=== PATIENT | female | born 1940 | race Caucasian/White ===

== ENCOUNTER 2016-12-30 12:13 | Emergency (ER) | payer MEDICARE ==
[~2016-12-30] VITALS: Ht 157.5 cm; Wt 63.6 kg
[~2016-12-30 12:13] MED LIST: ASPI81TA33 PO; GLIP10TA9 PO; HYDR25TA PO; INSLAN SQ; INSNOV SQ; LINA5TAB PO; LISI-618 PO; METF-515 PO; METF10002 PO; NITR.4 SL; SIMV-260 PO; SIMV20TA6 PO
[2016-12-30] MEDS ORDERED: NITR.4 SL (12:25)
[2016-12-30] MEDS ORDERED: CITA10TA68 PO (12:25)
[2016-12-30] MEDS ORDERED: AMLO-511 PO (12:25)
[2016-12-30] MEDS ORDERED: ATOR40TA28 PO (12:25)
[2016-12-30] MEDS ORDERED: NITROGLYCERIN 2% (1 GM=INCH) PACKET TP ONE (12:45)
[2016-12-30] MEDS ORDERED: ASPIRIN 81 MG CHEWABLE TABLET PO ONE (12:45)
[2016-12-30 13:06] LABS: BASOPHILS % (AUTO) 0.3 % (0.0-2.0); EOSINOPHILS % (AUTO) 3.1 % (1.0-6.0); HEMOGLOBIN 14.2 g/dL (12.0-16.0); LYMPHOCYTES # (AUTO) 1.8 K/uL (1.0-4.8); LYMPHOCYTES % (AUTO) 35.3 % (22.0-44.0); MEAN CORPUSCULAR HEMOGLOBIN 29.7 pg (26.0-34.0); MEAN CORPUSCULAR HGB CONC 33.7 G/dL (31.0-37.0); MEAN CORPUSCULAR VOLUME 88 fL (80-100); MONOCYTES # (AUTO) 0.4 K/uL (0.1-1.0); MONOCYTES % (AUTO) 8.3 % (2.0-9.0); NEUTROPHILS # (AUTO) 2.8 K/uL (1.8-7.7); PLATELET COUNT (AUTO) 295 K/uL (150-450); RED BLOOD CELL COUNT(AUTO) 4.78 MIL/uL (4.00-5.20); RED CELL DISTRIBUTION WIDTH 14.3 % (11.5-14.5); WHITE BLOOD COUNT (AUTO) 5.2 K/uL (4.5-11.0)
[2016-12-30 13:15] LABS: ANION GAP 7 mmol/L (8-16); CALCIUM, TOTAL 8.6 mg/dL (8.8-10.5); CARBON DIOXIDE 32 mmol/L (22-29); CHLORIDE 101 mmol/L (98-107); CREATININE 0.86 mg/dL (0.60-1.30); GLOMERULAR FILTR. RATE CALC > 60 mL/min (>60); POTASSIUM 3.9 mmol/L (3.5-5.1); SODIUM SERUM 140 mmol/L (136-145); UREA NITROGEN, BLOOD 12 mg/dL (7-18)
[2016-12-30 13:22] LABS: ALANINE AMINOTRANSFERASE 20 U/L (12-78); ALBUMIN 3.5 g/dL (3.4-5.0); ASPARTATE AMINOTRANSFERASE 15 U/L (15-37); BILIRUBIN,TOTAL 0.4 mg/dL (0.1-1.0); CREATINE KINASE, TOTAL 74 U/L (26-192); TOTAL PROTEIN, SERUM 7.1 g/dL (6.4-8.2)
[2016-12-30 13:26] LABS: B-TYPE NATRIURETIC PEPTIDE 113 pg/mL (0-100)
[2016-12-30 15:30] VITALS: BP 127/70
[2016-12-30 16:19] LABS: GLUCOSE,POINT OF CARE 316 MG/DL (70-110)
== END 2016-12-30 15:56 | disposition short-term general hospital (02) ==
LOC: EMS 12:15
DX: R07.89 Other chest pain (principal); E11.9 Type 2 diabetes mellitus without complications; I10 Essential (primary) hypertension; E78.00 Pure hypercholesterolemia, unspecified; Z79.4 Long term (current) use of insulin
CPT/HCPCS: 82962; 93005; 99285

== ENCOUNTER 2018-04-11 11:54 | Emergency (ER) | payer MEDICARE ==
[~2018-04-11] VITALS: Ht 154.9 cm; Wt 70.5 kg
[~2018-04-11 11:54] MED LIST changes: +AMLO-511 PO; -ASPI81TA33 PO; +ATOR40TA28 PO; +CITA10TA68 PO; -LINA5TAB PO; +METF-446 PO; -METF10002 PO; -SIMV-260 PO
[2018-04-11] MEDS ORDERED: CHOLESTEROL PO (12:00)
[2018-04-11] MEDS ORDERED: HTN PO (12:00)
[2018-04-11] MEDS ORDERED: DIABETIC PO (12:00)
[2018-04-11] MEDS ORDERED: INSNOV SQ (12:00)
[2018-04-11] MEDS ORDERED: KETOROLAC TROMETHAMINE 60 MG/2 ML VIAL IM ONE (15:30)
[2018-04-11 15:56] VITALS: BP 114/74
== END 2018-04-11 16:51 | disposition home or self-care (01) ==
LOC: EDUNIT# 11:54 → EMS 12:02
DX: S83.91XA Sprain of unspecified site of right knee, initial encounter (principal); E11.9 Type 2 diabetes mellitus without complications; E78.00 Pure hypercholesterolemia, unspecified; I10 Essential (primary) hypertension; Z90.49 Acquired absence of other specified parts of digestive tract; Z90.710 Acquired absence of both cervix and uterus; Z79.4 Long term (current) use of insulin; Z79.84 Long term (current) use of oral hypoglycemic drugs; Z79.899 Other long term (current) drug therapy; W01.0XXA Fall on same level from slipping, tripping and stumbling without subsequent striking against object, initial encounter; Y93.89 Activity, other specified; Y92.89 Other specified places as the place of occurrence of the external cause; Y99.8 Other external cause status
CPT/HCPCS: 29505; 73562; 82962; 96372; 99283; J1885